=== PATIENT | female | born 1965 | race Caucasian/White ===

== ENCOUNTER 2020-10-18 10:47 | Outpatient (CLI) | payer OTHER, SELFPAY ==
--- NOTE | ~2020-10-18 | MM_ITS ---
EXAMINATION: MM screening koko BI w dickson HISTORY: Screening TECHNIQUE: Craniocaudal and mediolateral oblique 3-D tomosynthesis images were obtained and synthetic 2-D images were generated. CAD analysis was submitted and interpreted. COMPARISON: No prior mammogram is available for comparison at this institution. BREAST PARENCHYMAL COMPOSITION: There are scattered areas of fibroglandular density. FINDINGS: There are developing asymmetries in the lower inner quadrant of the right breast and upper outer quadrant. There are no suspicious masses, calcifications or architectural distortion in the lef t breast to suggest malignancy. IMPRESSION: 1. Right breast asymmetries. 2. Additional mammographic views and possible breast ultrasound are recommended. BI-RADS Category 0: Incomplete: Needs additional imaging evaluation. Reviewed, dictated and finalized at location A. IMPRESSION: 1. Right breast asymmetries. 2. Additional mammographic views and possible breast ultrasound are recommended . BI-RADS Category 0: Incomplete: Needs additional imaging evaluation.
== END 2020-10-18 10:48 | disposition home or self-care (01) ==
LOC: ANHIMG 10:51
PROVIDERS: PCP Nurse Practitioner Obstetrics & Gynecology; Visit Provider Nurse Practitioner Obstetrics & Gynecology
DX: Z12.31 Encounter for screening mammogram for malignant neoplasm of breast (principal); R92.8 Other abnormal and inconclusive findings on diagnostic imaging of breast
CPT/HCPCS: 77063; 77067

== ENCOUNTER 2020-11-19 14:02 | Outpatient (CLI) | payer OTHER, SELFPAY ==
--- NOTE | ~2020-11-19 | MMUS_ITS ---
EXAMINATION: MM diagnostic mammo unilat RT, US breast RT limited HISTORY: New focal asymmetry in upper outer quadrant of right breast on 10/18/2020 screening mammogram TECHNIQUE: Additional 3-D tomosynthesis images of the right breast were performed and synthetic 2-D i mages were generated. CAD analysis was submitted and interpreted. High resolution limited upper outer quadrant right breast ultrasound was performed. COMPARISON: 10/18/2020 bilateral digital screening mammogram 02/18/2016 outside bilateral digital mamm ogram FINDINGS: MAMMOGRAPHIC FINDINGS: No suspicious new reproducible mass or architectural distortion is detected since 02/18/2016. ULTRASOUND: 11:00 1 cm from nipple: Approximately 3.7 x 3.3 x 3.8 mm cluster of cysts, without internal vasculari ty or suspicious shadowing. No suspicious mass or shadowing is detected. IMPRESSION: 1. No mammographic evidence of malignancy 2. Routine annual mammographic screening is recommended BI-RADS Category 2: Benign finding(s). Reviewed, dictated and finalized at location A. IMPRESSION: 1. No mammographic evidence of malignancy 2. Routine annual mammographic screening is recommended BI-RADS Category 2: Benign finding(s).
== END 2020-11-19 14:03 | disposition home or self-care (01) ==
LOC: ANHIMG 14:06
PROVIDERS: PCP Nurse Practitioner Obstetrics & Gynecology; Visit Provider Nurse Practitioner Obstetrics & Gynecology
DX: R92.8 Other abnormal and inconclusive findings on diagnostic imaging of breast (principal); N63.11 Unspecified lump in the right breast, upper outer quadrant
CPT/HCPCS: 76642; 77065

== ENCOUNTER 2022-03-29 12:30 | Outpatient (RCR) | payer OTHER, SELFPAY ==
--- NOTE | 2022-01-01 12:12 | PTOPEVAL1 ---
Evaluation Information Assessment Status Evaluation Diagnosis neck pain Reported Pain Level Pain Score 5: Self Report Assessment PT Clinical Summary Pt presents w/ c/o neck pain and history of C3-5 fusion in 1992. X-rays show what appear to be normal time related changes w/ disc height, vertebral bodies, etc w/ hardware appearing normal . While pt ROM is limited, she has no pain with motion testing suggesting hardware is still viable . She does however show a greater limitation in AROM L cervical rot as compared to R which may increase with intervention. Evaluation shows also Dowager's sign, flat thoracic, increased lumbar spinal lordosis. Demo's increased mm tone/spasm with TTP L upper trap and radicular symptoms into left back as well as mm tone in rhomboids and periscapular area, and possible first L rib elevation. Pt pain level decreases to 2/10 at lowest level and increases to 8/10 at highest level. Pt will greatly benefit from therapy to address muscle tone, pain, and muscle activation patterns to functional activities with less discomfort. These treatments will address the objective and functional deficits as defined above. The patient will be advanced safely and appropriately in order for the patient to progress towards his/her prior level of function. Additional exercises will be introduced and as well as a comprehensive home exercise program upon discharge, if needed, ?to ensure carryover of functional gains achieved in the clinic. This treatment plan has been reviewed and agreement upon by the patient.
--- NOTE | 2022-01-13 11:53 | PCPTNOTE ---
Patient did not show for appointment this date. Office staff called and spoke with patient who states she received a message stating insurance was not going to cover. Waiting to hear back from patient on insurance approval.
--- NOTE | 2022-01-22 12:30 | PCPTNOTE ---
Patient did not show this visit to scheduled appointment. Clerical staff reports patient need pre authorization and is working on paper work. Patient was not called at this time due to paperwork still pending.
--- NOTE | 2022-03-08 11:03 | PTOPEVAL1 ---
Assessment and note entered by Corina Jose, PT Evaluation Information Assessment Status Re-evaluation Diagnosis neck pain Subjective Information Has been diligent with stretching, feels like she is moving better but pain is still present. Two days was greatly increased pain Reported Pain Level Pain Score 2: Self Report Assessment PT Clinical Summary Pt returns after 2 months without therapy secondary to insurance issues. She has been performing her stretches and exercises as directed in this time frame and feels her motion has improved. Evaluation demo's continued decreased motion overall jeffy in L rotation and bilat lateral flexion of cervical spine. She also demo's significant muscle tightness, adhesion, and spasms jeffy in the upper trap area and multiple small muscles throughout cervical spine. Pt pain ranges from 2-10/10 in intensity depending on her activities and environmental factors. Thus patient will benefit from therapy in order to address deficits, and improve discomfort. Plan of Care Interventions Electrical Stimulation,Hot Pack/Cold Pack,Manual Therapy,Neuro Re-education,Therapeutic Activities, Therapeutic Exercise,Self-Care/Home Management PT Services Indicated Yes Treatment Frequency and 1-2x weekly x 5 weeks Duration These treatments will address the objective and functional deficits as defined above. The patient will be advanced safely and appropriately in order for the patient to progress towards his/her prior level of function. Additional exercises will be introduced and as well as a comprehensive home exercise program upon discharge, if needed, ?to ensure carryover of functional gains achieved in the clinic. This treatment plan has been reviewed and agreement upon by the patient.
--- NOTE | 2022-04-01 15:58 | PCPTNOTE ---
Pt plan continues on [id number]
== END 2022-03-31 13:35 | disposition still patient (30) ==
LOC: ANHHIPT 12:30
PROVIDERS: PCP Nurse Practitioner Obstetrics & Gynecology; Visit Provider Physician Assistant Medical
DX: M54.2 Cervicalgia (principal)
CPT/HCPCS: 97014; 97032; 97110; 97140; G0283

== ENCOUNTER 2022-05-26 12:30 | Outpatient (RCR) | payer OTHER, SELFPAY ==
--- NOTE | 2022-04-01 07:51 | PCPTNOTE ---
Pt account [id number] is continuation of plan of care from account [id number].
--- NOTE | 2022-05-19 15:49 | PCPTNOTE ---
Patient called & cancelled scheduled appointment this date due to incliment weather
--- NOTE | 2022-05-26 15:27 | PTOPDC ---
Assessment and note entered by Corina Jose, PT Assessment Status Discharge Diagnosis neck pain Subjective Information Pt reports feeling 85% improved overall. Pt reports is able to relieve headache issues by using better posture. Is also better able to drive and look over her left shoulder for a specific turn in the local area Is better able to manage pain than previously, has not been having increased pain Reported Pain Level Pain Score 2: Self Report Assessment PT Clinical Summary Pt reports feeling 85% improved overall. States her pain remains at a 2/10 and is much more manageable . Demo's improved functional AROM for activities such as driving and reduction of muscle tension. Pt has been educated on home program to assist in maintaining her gaits and is aware of limitations of progress secondary to prior cervical fusion C3-5. Pt has met her goals for therapy thus is being discharge from current therapy POC.
== END 2022-05-27 14:07 | disposition home or self-care (01) ==
LOC: ANHHIPT 12:30
PROVIDERS: PCP Nurse Practitioner Obstetrics & Gynecology; Visit Provider Physician Assistant Medical
DX: M54.2 Cervicalgia (principal)
CPT/HCPCS: 97014; 97110; 97140; G0283

== ENCOUNTER 2022-06-18 11:22 | Outpatient (CLI) | payer OTHER, SELFPAY ==
--- NOTE | 2022-06-18 11:41 | ECG_ITS ---
Measurements Intervals [place] Rate: 76 P: 31 AL: 151 QRS: 6 QRSD: 107 T: 10 QT: 373 QTc: 420 Interpretive Statements SINUS RHYTHM WITHIN NORMAL LIMITS NO PREVIOUS ECG AVAILABLE FOR COMPARISON Electronically Signed On 06-18-2022 15:35:47 MARKET RESEARCH ANALYST by Rishi Roberto M.D.
== END 2022-06-18 11:23 | disposition home or self-care (01) ==
DX: R00.2 Palpitations (principal)
CPT/HCPCS: 93005

== ENCOUNTER 2022-07-05 13:43 | Outpatient (CLI) | payer OTHER, SELFPAY ==
--- NOTE | ~2022-07-05 | XR_ITS ---
EXAM: XR hip RT min 2V DATE: 07/05/2022 14:02 HISTORY: PAIN IN RIGHT HIP JOINT X3MO, NO INJ, NO SURG . COMPARISON: None available. FINDINGS: Normal mineralization. Ossified fragment adjacent to the medial aspect of the greater troc hanter. No lytic or blastic lesion. Lumbar degenerative disc disease. Partial sacralization of L5 on the right. Moderate osteoarthritic change of the right hip. Pelvic phleboliths. No erosion or periost eal change. Soft tissues within normal limits. IMPRESSION: Possible greater trochanter avulsion of uncertain age. CT or MR of the pelvis would be he lpful for further characterization. Reviewed, dictated and finalized at location K. IMPRESSION: Possible greater trochanter avulsion of uncertain age. CT or MR of the pelvis would be helpful for further characterization.
== END 2022-07-05 13:44 | disposition home or self-care (01) ==
DX: M25.551 Pain in right hip (principal)
CPT/HCPCS: 73502

== ENCOUNTER 2022-11-16 15:00 | Outpatient (RCR) | payer OTHER, SELFPAY ==
--- NOTE | 2022-08-24 15:57 | PTOPEVAL1 ---
Assessment and note entered by Corina Jose, PT Evaluation Information Assessment Status Evaluation Diagnosis right hip pain Onset 04/2022 Subjective Information Has been present since April 2022 Worsened in last 4 months with carrying granddaughter up and down steps Is unable to get up off the floor without using hands to get Reported Pain Level Pain Score 6: Self Report Assessment PT Clinical Summary Pt presents w/ c/o right hip and low back pain that has persisted since the beginning of the year . Pt reports she feels this is due to in part her carrying her grandchild. Pt reports pain can increase to 8/10 at times and goes down to a 2/10 at best rating. Reports because of her pain she has difficulty going up steps has to do them one step at a time, is afraid of getting into and out of the bath independently, and has great difficulty getting up off the floor effecting her ability to care for her grandchild. Today she demo 's abnormal pelvic alignment, multiple areas of tenderness, decreased glute and core strength overall. Pt will benefit from physical therapy to address deficits, improve pain, and improve functional activities. Plan of Care Interventions Electrical Stimulation,Hot Pack/Cold Pack,Manual Therapy,Neuro Re-education,Therapeutic Activities, Therapeutic Exercise,Ultrasound,Other Other Interventions DME, taping PT Services Indicated Yes Treatment Frequency and 2x weekly x 6 weeks Duration These treatments will address the objective and functional deficits as defined above. The patient will be advanced safely and appropriately in order for the patient to progress towards his/her prior level of function. Additional exercises will be introduced and as well as a comprehensive home exercise program upon discharge, if needed, ?to ensure carryover of functional gains achieved in the clinic. This treatment plan has been reviewed and agreement upon by the patient.
--- NOTE | 2022-09-17 15:58 | PCPTNOTE ---
Patient no call and no showed to appointment. Called and left voicemail with patient.
--- NOTE | 2022-10-05 15:34 | PTOPPROG ---
Assessment and note entered by Corina Jose, PT Assessment Status Progress Report Diagnosis right hip pain Onset 04/2022 Subjective Information Pt reports feeling 80% improved, states because it still happens . thinks needs more strengthening to stabilize her hips. Reports the sacroilliac belt helps Assessment PT Clinical Summary Pt has attended 10 sessions for her right hip pain and reports feeling 80% improved overall. Her pain has greatly reduced overall but still has instances of pain, and pain into right leg. States DME is helping and she can do more now but feels like she needs more education on strengthening. Pt demo's improved but continued decreased right hip ROM compared to left hip, overall decreased glute medius and jackson strength, and continued adhesions in RLE. Therapy thus far has been focused on decreasing pain, improving core stability and pelvic alignment. Thus patient will benefit from cont therapy at a reduced frequency to focus on right hip ROM, strengthening and continued pelvic stabilization as well as to educate and empower patient to maintain progress independently once completed therpay plan of care. Plan of Care Interventions Electrical Stimulation,Hot Pack/Cold Pack,Manual Therapy,Neuro Re-education,Therapeutic Activities, Therapeutic Exercise,Ultrasound,Other Other Interventions DME, taping PT Services Indicated Yes Treatment Frequency and 1-2x weekly x 4 weeks Duration These treatments will address the objective and functional deficits as defined above. The patient will be advanced safely and appropriately in order for the patient to progress towards his/her prior level of function. Additional exercises will be introduced and as well as a comprehensive home exercise program upon discharge, if needed, ?to ensure carryover of functional gains achieved in the clinic. This treatment plan has been reviewed and agreement upon by the patient.
--- NOTE | 2022-11-01 16:39 | PTOPPROG ---
Assessment and note entered by Corina Jose, PT Assessment Status Progress Diagnosis right hip pain Onset 04/2022 Subjective Information Pt reports still feeling 80% improvement in right. Has not been able to perform her exercises in the last ten days . Radiating hamstring pain has not consistently improved. Assessment PT Clinical Summary Pt reports has not performed her exercises while on vacation. Today demo's mildly improved gluteus medius strength but not change in gluteus minimus strength. She does to improved right hip ROM in flexion and with piriformis flexibility but also demo's anterior capsular tightness. Pt was educated in importance of exercises to maintain low levels of pain as well as slight shift in focus to anterior hip stretching to address compensatory right hamstring tightness. Pt was provided home exercises and education on this as well as discussed a decreased frequency to allow patient to perform her exercises and assess as needed her progress. Thus pt will benefit from a greatly decreased frequency of therapy to address deficits, empower pt to perform activities independently, and assess change in plan on her progress. Plan of Care Interventions Electrical Stimulation,Hot Pack/Cold Pack,Manual Therapy,Neuro Re-education,Therapeutic Activities, Therapeutic Exercise,Ultrasound,Other Other Interventions DME, taping PT Services Indicated Yes Treatment Frequency and 4 visits PRN over the next 4 weeks. Duration These treatments will address the objective and functional deficits as defined above. The patient will be advanced safely and appropriately in order for the patient to progress towards his/her prior level of function. Additional exercises will be introduced and as well as a comprehensive home exercise program upon discharge, if needed, ?to ensure carryover of functional gains achieved in the clinic. This treatment plan has been reviewed and agreement upon by the patient.
--- NOTE | 2022-11-09 13:27 | PCPTNOTE ---
Patient called & cancelled scheduled appointment this date due to conference call for work.
== END 2022-11-22 23:59 | disposition home or self-care (01) ==
LOC: ANHHIPT 15:00
DX: M54.2 Cervicalgia (principal); M25.551 Pain in right hip; R49.0 Dysphonia
CPT/HCPCS: 97014; 97110; 97140; 97162; G0283

== ENCOUNTER 2022-11-30 15:00 | Outpatient (RCR) | payer OTHER, SELFPAY ==
--- NOTE | 2022-11-30 15:59 | PTOPDC ---
Assessment and note entered by Corina Jose, BERTHA Assessment Status Discharge Diagnosis right hip pain Onset 04/2022 Subjective Information Pt reports feeling 80% still improved. Has been able to work out but is still up at night with pain posterior hip. Feels like a sciatic pain and radiates down but not in the sciatic area. Feels like has improved a lot but that something deeper needs to be looked at. Difficulty dressing herself secondary to difficult donning socks and shoes Reported Pain Level Pain Score 2: Self Report Assessment PT Clinical Summary Pt has attended therapy for pain in right hip. Initially presented with sacroilliac alignment deficit, instability, and decreased strength. Addressing this aspect pt reports feeling 80% improved overall. Testing today shows isolated right hip joint motion deficit especially in the lateral and anterior capsule. Pt has been able ot perform higher level activities such as fitness regiment, and is able to perform many of her daily activities, she also continues to have difficulty with RLE dressing due to lack of ROM. As insurance has denied further therapy at this time, pt is being discharged from plan of care per her request. However she would greatly benefit from further imaging and an orthopeadic consult to rule out hip arthritis or other anatomical damage as cause of continued pain and dysfunction.
== END 2022-12-01 14:15 | disposition home or self-care (01) ==
LOC: ANHHIPT 15:00
DX: M54.2 Cervicalgia (principal); M25.551 Pain in right hip; R49.0 Dysphonia
CPT/HCPCS: 97014; 97140; 97750; G0283

== ENCOUNTER 2023-06-16 09:30 | Outpatient (CLI) | payer OTHER, SELFPAY ==
--- NOTE | ~2023-06-16 | XR_ITS ---
Right foot Technique: AP, oblique, and lateral views were obtained. Clinical History: Pain Findings: No acute fracture or dislocation is seen. Osseous alignment is anatomic. Joint spaces are p reserved without erosive or degenerative change. Soft tissues are unremarkable. Impression: Unremarkable right foot radiographs. Reviewed, dictated and finalized at location . ERCIAL CORRESPONDENT Impression: Unremarkable right foot radiographs.
== END 2023-06-16 09:31 | disposition home or self-care (01) ==
DX: M79.671 Pain in right foot (principal)
CPT/HCPCS: 73630

== ENCOUNTER 2023-09-21 15:43 | Outpatient (RCR) | payer OTHER, SELFPAY ==
--- NOTE | 2023-09-21 18:07 | PTOPEVAL1 ---
Assessment and note entered by Corina Jose, PT Evaluation Information Assessment Status Evaluation Diagnosis status post anterior right total hip arthroplasty Therapy conditions weakness oth abnormalities of gait and mobility Onset 08/31/23 Subjective Information Pt reports surgery three weeks ago. Has not had to take one pain pill since returning home. Prior to surgery was doing strengthening prior to surgery and feels this improved overall outcomes. Stairs are great . If has been sitting for too long, has to take steps one at a time. If keeps moving feels better. 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 Returns to [facility] in 2 days to look at her incision. 2 weeks post-op wasn't excited about the incision so has been putting iodine on 2x daily. Reported Pain Level Pain Score 0: Self Report Assessment PT Clinical Summary Pt presents three weeks s/p R THR. She is ambulating without AD, ambulating very functionally with minimal deficits, reports very low levels of pain and is no longer requriing pain medication. Her largest deficits appear strength related with gluteus medius and jackson and self reported inability to perform straight leg raise in flexion. Pt will benefit from phyiscal therpay to address deficits within protocol for anterior approach THR to assist her in achieving maximal outcomes. Plan of Care Interventions Electrical Stimulation,Gait Training,Hot Pack/Cold Pack,Manual Therapy,Neuro Re-education,Patient/ Caregiver Educati,Therapeutic Activities, Therapeutic Exercise,Self-Care/Home Management PT Services Indicated Yes Treatment Frequency and 2x weekly x 6 weeks Duration These treatments will address the objective and functional deficits as defined above. The patient will be advanced safely and appropriately in order for the patient to progress towards his/her prior level of function. Additional exercises will be introduced and as well as a comprehensive home exercise program upon discharge, if needed, ?to ensure carryover of functional gains achieved in the clinic. This treatment plan has been reviewed and agreement upon by the patient.
--- NOTE | 2023-09-21 18:07 | OPREHPOC ---
Outpatient Therapy Plan of Care This is a Multidisciplinary Plan of Care that may contain components documented by all disciplines (PT, OT, and ST.) PT Problem 1 PT Problem #1 Knowledge Deficit PT Goal 1 Goal Pt will be independent in HEP Pt will verbalize understanding of diagnosis and prognosis Target Visit 6 PT Problem 2 PT Problem #2 Pain PT Goal 1 Goal Pt will report resolution of pain to allow maximal independence Target Visit 12 PT Problem 3 PT Problem #3 Impaired Gait PT Goal 1 Goal Pt will demo gait without lateral shift in RLE midstance Target Visit 12 PT Problem 4 PT Problem #4 Impaired Strength PT Goal 1 Goal Pt will show 3+/5 paul hip abduction strength Target Visit 6 PT Goal 2 Goal Pt will show 4/5 hip extension and abduction strength paul Target Visit 12
--- NOTE | 2023-10-20 09:09 | PTOPDC ---
Assessment and note entered by Corina Jose, PT Assessment Status Discharge - Pt Not Present Diagnosis status post anterior right total hip arthroplasty Onset 08/31/23 Assessment PT Clinical Summary Spoke with patient while waiting for insurance authorization. Pt recently stated her insurance dropped her but that she was doing well and didn't feel she needed therapy. Thus patient plan of care will be discharged at this time. Plan of Care PT Services Indicated No
== END 2023-10-20 09:54 | disposition home or self-care (01) ==
LOC: ANHHIPT 15:43
DX: Z47.1 Aftercare following joint replacement surgery (principal); Z96.641 Presence of right artificial hip joint
CPT/HCPCS: 97161; 97530